=== PATIENT | male | born 1960 | race Two or more races ===

== ENCOUNTER 2022-04-08 09:27 | Inpatient (IN) | payer MEDICAID ==
[~2022-04-08] VITALS: Ht 185.4 cm; Wt 91.2 kg
[2022-04-08] MEDS ORDERED: ASPIRIN 325MG EC TABLET PO ONE (12:45)
[2022-04-08] MEDS ORDERED: METOPROLOL TARTRATE 50MG TABLET PO ONE (12:45)
[2022-04-08 14:49] LABS: CHLORIDE 103 mEq/L (98-107)
[2022-04-08] MEDS ORDERED: CLONIDINE 0.1MG TABLET PO PRN (15:30)
[2022-04-08] MEDS ORDERED: ACETAMINOPHEN 325MG TABLET PO PRN (15:30)
[2022-04-08] MEDS ORDERED: ONDANSETRON HCL 4MG/2ML INJ IV PRN (15:30)
[2022-04-08] MEDS ORDERED: IPRATROPIUM/ALBUTEROL 0.5-3(2.5)MG/3ML NEB HHN PRN (15:30)
[2022-04-08] MEDS: AMLODIPINE 5MG TABLET PO SCH (15:30)
[2022-04-08] MEDS ORDERED: DIPHENHYDRAMINE 50MG/ML VIAL IV PRN (15:30)
[2022-04-08] MEDS ORDERED: MORPHINE SULFATE 2 MG/ML CPJ (NOT FOR IM USE) IV PRN (15:30)
[2022-04-08] MEDS ORDERED: NALOXONE HCL 0.4MG/ML VIAL IV PRN (15:45)
[2022-04-08 16:28] LABS: BASOPHILS % 0.4 % (0.0-2.0); EOSINOPHILS % 0.7 % (0.0-5.0); HEMATOCRIT. 41.4 % (42.0-52.0); HEMOGLOBIN. 14.3 g/dL (14.0-18.0); LYMPHOCYTES % 18.5 % (20.0-50.0); MEAN CORPUSCULAR HEMOGLOBIN 32.1 pg (28.0-32.0); MEAN PLATELET VOLUME 8.3 fl (7.4-10.4); NEUTROPHILS % 72.4 % (40.0-76.0); PLATELET 180 x1000/uL (130-400); RED BLOOD CELL COUNT 4.45 mill/uL (4.7-6.1); RED CELL DISTRIBUTION WIDTH 13.1 % (11.6-14.6)
[2022-04-08] MEDS ORDERED: METOPROLOL TARTRATE 50MG TABLET PO NR (17:00)
[2022-04-08] MEDS ORDERED: ASPIRIN 325MG EC TABLET PO NR (17:00)
[2022-04-09] VITALS (7 sets, daily range): BP systolic 119–146; BP diastolic 82–94
[2022-04-09 06:31] LABS: BASOPHILS % 0.5 % (0.0-2.0); HEMATOCRIT. 41.2 % (42.0-52.0); HEMOGLOBIN. 14.2 g/dL (14.0-18.0); LYMPHOCYTES % 34.6 % (20.0-50.0); MEAN CORPUSCULAR HEMOGLOBIN 31.9 pg (28.0-32.0); MEAN CORPUSCULAR VOLUME 92.3 fL (80.0-94.0); MEAN PLATELET VOLUME 8.7 fl (7.4-10.4); MONOCYTES % 11.1 % (2.0-8.0); NEUTROPHILS % 47.8 % (40.0-76.0); PLATELET 180 x1000/uL (130-400); RED BLOOD CELL COUNT 4.46 mill/uL (4.7-6.1); RED CELL DISTRIBUTION WIDTH 13.1 % (11.6-14.6)
[2022-04-09 06:44] LABS: CHLORIDE 103 mEq/L (98-107)
[2022-04-09] MEDS: AMLODIPINE 5MG TABLET PO SCH (09:05)
[2022-04-09] MEDS ORDERED: ALBU6.7H3 INH (13:13)
[2022-04-09] MEDS ORDERED: AMLO5TAB88 PO (13:13)
== END 2022-04-09 14:19 | disposition home or self-care (01) | DRG 199 ==
LOC: EDBD 09:31 → ER 09:31 → 8WST 14:48 → EDBEDREQ 14:53 → EDBEDREQTM 14:54 → EDBEDREQ 14:54 → ER 23:01
PROVIDERS: ADMIT Internal Medicine; ATTEND Internal Medicine
DX: I16.0 Hypertensive urgency (principal); J96.00 Acute respiratory failure, unspecified whether with hypoxia or hypercapnia; I10 Essential (primary) hypertension; M94.0 Chondrocostal junction syndrome [Tietze]; J45.909 Unspecified asthma, uncomplicated; Z20.822 Contact with and (suspected) exposure to COVID-19; Z87.09 Personal history of other diseases of the respiratory system
CPT/HCPCS: 36415; 71045; 80053; 83880; 84484; 85025; 87426; 87804; 93005; 93306; 93970; 99291; C9803